=== PATIENT | male | born 1965 | race Caucasian/White ===

== ENCOUNTER 2022-06-20 21:52 | Emergency (ER) | payer OTHER ==
[2022-06-20] MEDS ORDERED: Ondansetron PF 4 MG/2 ML Vial ONE ×2 (22:51→23:05)
[2022-06-20] MEDS ORDERED: Morphine 4 MG/ML VIAL ONE ×2 (22:51→23:05)
[2022-06-20] MEDS ORDERED: Ketorolac Tromethamine 30 MG/ML VIAL ONE ×2 (22:51→23:05)
== END 2022-06-21 01:00 | disposition home or self-care (01) ==
LOC: ERS 21:52
DX: N45.1 Epididymitis (principal); F17.210 Nicotine dependence, cigarettes, uncomplicated
CPT/HCPCS: 76870; 93976; 96374; 96375; J1885; J2270; J2405

== ENCOUNTER 2022-06-23 00:31 | Inpatient (IN) | payer OTHER ==
[2022-06-23 01:45] LABS: #Basophils 0.1 thou/uL (0.0-0.2); #Eosinphils 0.4 thou/uL (0.0-0.7); #Lymphocytes 1.8 thou/uL (1.20-3.40); #Monocytes 1.4 thou/uL (0.11-0.59); #Neutrophils 13.1 thou/uL (1.40-6.50); %Basophils 0.4 % (0.0-1.0); %Eosinophils 2.3 % (0.0-10.0); %Monocytes 8.1 % (0.0-10.0); %Neutrophils 78.3 % (42.0-75.0); Hemoglobin 13.1 g/dL (14.0-18.0); Mean Corpuscular HGB CONC 34.2 g/dL (32.0-36.0); Mean Corpuscular Hemoglobin 31.2 pg (27.0-31.0); Mean Corpuscular Volume 91.1 fl (78.0-98.0); Mean Platelet Volume 7.2 fL (7.4-10.4); Platelet Count 275 10x3/uL (130-400); RBC Distribution Width 12.2 % (11.5-14.5); White Blood Cell (WBC) Count 16.8 10x3/uL (4.8-10.8)
[2022-06-23] MEDS ORDERED: Ondansetron PF 4 MG/2 ML Vial ONE (01:46)
[2022-06-23] MEDS ORDERED: Morphine 4 MG/ML VIAL ONE ×2 (01:46→03:10)
[2022-06-23] MEDS ORDERED: Piperacillin/Tazobactam 3.375 GM VIAL ONE (01:46)
[2022-06-23 01:59] LABS: INR-International Normal Ratio 1.3; Prothrombin Time 16.4 sec (12.0-14.7)
[2022-06-23 02:00] LABS: PTT 43.9 sec (22.9-36.1)
[2022-06-23 02:08] LABS: ALT (SGPT) 19 U/L (8-55); AST (SGOT) 13 U/L (5-34); Albumin 3.7 g/dL (3.5-5.0); Alkaline Phosphatase 76 U/L (40-110); Anion Gap 11 mmol/L (10-20); BUN (Urea Nitrogen) 22 mg/dL (8.4-25.7); Bilirubin, Total 0.2 mg/dL (0.2-1.2); Calc. Creatinine Clearance 0 mL/min (70-130); Calcium 9.6 mg/dL (7.8-10.44); Carbon Dioxide 26 mmol/L (22-29); Chloride 101 mmol/L (98-107); Estimated GFR 101; Glucose 237 mg/dL (70-105); Potassium 3.6 mmol/L (3.5-5.1); Protein, Total 7.7 g/dL (6.0-8.3); Sodium 134 mmol/L (136-145)
[2022-06-23] MEDS ORDERED: Vancomycin 1 GM/200 ML (FROZEN) BAG ONE (02:51)
[2022-06-23] MEDS ORDERED: Acetaminophen 325 MG TAB PO PRN (03:23)
[2022-06-23] MEDS ORDERED: Senokot S 8.6-50 MG TAB PO PRN (03:23)
[2022-06-23] MEDS ORDERED: Ondansetron PF 4 MG/2 ML Vial IVP PRN (03:23)
[2022-06-23] MEDS ORDERED: Ondansetron ODT 4 MG TAB PO PRN (03:23)
[2022-06-23] MEDS ORDERED: Ketorolac Tromethamine 30 MG/ML VIAL IVP PRN (03:25)
[2022-06-23 04:24] VITALS: BMI 37.4
[2022-06-23] MEDS: Piperacillin/Tazobactam 3.375 GM in Sodium Chloride 0.9% 100 ML IVPB SCH ×3 (04:58→21:04)
[2022-06-23 06:54] LABS: #Eosinphils 0.4 thou/uL (0.0-0.7); #Lymphocytes 1.7 thou/uL (1.20-3.40); #Monocytes 1.2 thou/uL (0.11-0.59); #Neutrophils 11.2 thou/uL (1.40-6.50); %Eosinophils 2.7 % (0.0-10.0); %Lymphocytes 11.6 % (21.0-51.0); %Monocytes 8.1 % (0.0-10.0); %Neutrophils 77.5 % (42.0-75.0); Hemoglobin 12.6 g/dL (14.0-18.0); Mean Corpuscular HGB CONC 33.8 g/dL (32.0-36.0); Mean Corpuscular Hemoglobin 30.8 pg (27.0-31.0); Mean Platelet Volume 7.2 fL (7.4-10.4); Platelet Count 267 10x3/uL (130-400); RBC Distribution Width 12.3 % (11.5-14.5); Red Blood Cell (RBC) Count 4.11 mill/uL (4.70-6.10); White Blood Cell (WBC) Count 14.4 10x3/uL (4.8-10.8)
[2022-06-23 07:16] LABS: Hemoglobin A1c 7.2 % (4.0-6.0)
[2022-06-23 07:19] LABS: Anion Gap 11 mmol/L (10-20); BUN (Urea Nitrogen) 19 mg/dL (8.4-25.7); Calc. Creatinine Clearance 183 mL/min (70-130); Carbon Dioxide 23 mmol/L (22-29); Chloride 104 mmol/L (98-107); Potassium 3.9 mmol/L (3.5-5.1); Sodium 134 mmol/L (136-145)
[2022-06-23 07:20] LABS: ALT (SGPT) 16 U/L (8-55); AST (SGOT) 11 U/L (5-34); Albumin 3.3 g/dL (3.5-5.0); Alkaline Phosphatase 68 U/L (40-110); Bilirubin, Total 0.2 mg/dL (0.2-1.2); Estimated GFR 103; Globulin 3.5 g/dL (2.4-3.5); Glucose 227 mg/dL (70-105); Protein, Total 6.8 g/dL (6.0-8.3)
[2022-06-23] MEDS ORDERED: Dextrose 5% in Water 1,000 ML IV PRN (08:12)
[2022-06-23] MEDS ORDERED: HumaLOG 300 UNITS/3 ML VIAL SC PRN (08:12)
[2022-06-23] MEDS ORDERED: Dextrose 50% Abboject 50 ML SYRINGE SLOW IVP PRN (08:12)
[2022-06-23] MEDS ORDERED: HYDROcodone/Acetaminophen 5/325 mg Tablet PO PRN (08:13)
[2022-06-23] MEDS: Famotidine 20 MG TAB PO SCH ×2 (08:34→21:15)
[2022-06-23] MEDS: Morphine 2 MG/ML VIAL SLOW IVP PRN ×3 (08:34→21:09)
[2022-06-23] MEDS ORDERED: Famotidine/PF 20 mg/2ml Vial SLOW IVP SCH (09:00)
[2022-06-23] MEDS: HYDROcodone/Acetaminophen 5/325 mg Tablet PO PRN (12:14)
[2022-06-23] MEDS ORDERED: VANCOMYCIN 1.75 GM/500 ML BAG 1.75 GM in Premix Bag 1 BAG IVPB SCH (15:00)
[2022-06-23 16:19] LABS: Anion Gap 12 mmol/L (10-20); BUN (Urea Nitrogen) 15 mg/dL (8.4-25.7); Calc. Creatinine Clearance 203 mL/min (70-130); Calcium 9.1 mg/dL (7.8-10.44); Carbon Dioxide 23 mmol/L (22-29); Chloride 103 mmol/L (98-107); Estimated GFR 106; Glucose 181 mg/dL (70-105); Potassium 4.2 mmol/L (3.5-5.1); Sodium 134 mmol/L (136-145)
[2022-06-23] MEDS: VANCOMYCIN 1.75 GM/500 ML BAG 1.75 GM in Premix Bag 1 BAG IVPB SCH (18:27)
[2022-06-23] MEDS ORDERED: VANCOMYCIN 750 MG/250 ML BAG 750 MG in Sodium Chloride 0.9% 250 ML 250 ML IVPB SCH (21:00)
[2022-06-24] MEDS: VANCOMYCIN 1.75 GM/500 ML BAG 1.75 GM in Premix Bag 1 BAG IVPB SCH ×2 (05:34→17:52)
[2022-06-24] MEDS: Morphine 2 MG/ML VIAL SLOW IVP PRN (05:36)
[2022-06-24 07:04] LABS: #Eosinphils 0.4 thou/uL (0.0-0.7); #Lymphocytes 1.8 thou/uL (1.20-3.40); #Monocytes 1.2 thou/uL (0.11-0.59); %Basophils 0.2 % (0.0-1.0); %Eosinophils 3.3 % (0.0-10.0); %Lymphocytes 14.2 % (21.0-51.0); %Monocytes 9.3 % (0.0-10.0); %Neutrophils 72.9 % (42.0-75.0); Hemoglobin 12.8 g/dL (14.0-18.0); Mean Corpuscular HGB CONC 33.6 g/dL (32.0-36.0); Mean Corpuscular Hemoglobin 30.7 pg (27.0-31.0); Mean Corpuscular Volume 91.4 fl (78.0-98.0); Mean Platelet Volume 7.1 fL (7.4-10.4); Platelet Count 322 10x3/uL (130-400); RBC Distribution Width 12.4 % (11.5-14.5); Red Blood Cell (RBC) Count 4.17 mill/uL (4.70-6.10); White Blood Cell (WBC) Count 12.3 10x3/uL (4.8-10.8)
[2022-06-24] MEDS: Piperacillin/Tazobactam 3.375 GM in Sodium Chloride 0.9% 100 ML IVPB SCH ×3 (08:03→21:16)
[2022-06-24] MEDS: Famotidine 20 MG TAB PO SCH ×2 (08:03→21:19)
[2022-06-24] MEDS ORDERED: Ketorolac Tromethamine 30 MG/ML VIAL IVP SCH (12:45)
[2022-06-24] MEDS: HYDROcodone/Acetaminophen 5/325 mg Tablet PO PRN ×2 (16:17→21:21)
[2022-06-24 17:21] LABS: Vancomycin, Trough 8.9 ug/mL
[2022-06-24] MEDS: Ketorolac Tromethamine 30 MG/ML VIAL IVP SCH (17:54)
[2022-06-25] MEDS: Ketorolac Tromethamine 30 MG/ML VIAL IVP SCH ×5 (00:48→23:00)
[2022-06-25] MEDS: VANCOMYCIN 1.75 GM/500 ML BAG 1.75 GM in Premix Bag 1 BAG IVPB SCH ×2 (05:03→18:31)
[2022-06-25] MEDS: HYDROcodone/Acetaminophen 5/325 mg Tablet PO PRN ×2 (05:59→14:01)
[2022-06-25] MEDS: Piperacillin/Tazobactam 3.375 GM in Sodium Chloride 0.9% 100 ML IVPB SCH ×3 (07:08→23:01)
[2022-06-25] MEDS: Famotidine 20 MG TAB PO SCH ×2 (08:05→20:19)
[2022-06-25] MEDS: Morphine 2 MG/ML VIAL SLOW IVP PRN ×2 (08:06→19:30)
[2022-06-26 05:38] LABS: #Eosinphils 0.2 thou/uL (0.0-0.7); #Lymphocytes 1.5 thou/uL (1.20-3.40); #Monocytes 0.7 thou/uL (0.11-0.59); #Neutrophils 7.4 thou/uL (1.40-6.50); %Basophils 0.2 % (0.0-1.0); %Eosinophils 2.4 % (0.0-10.0); %Lymphocytes 14.9 % (21.0-51.0); %Monocytes 7.5 % (0.0-10.0); %Neutrophils 75.1 % (42.0-75.0); Mean Corpuscular HGB CONC 32.8 g/dL (32.0-36.0); Mean Corpuscular Hemoglobin 29.9 pg (27.0-31.0); Mean Platelet Volume 6.8 fL (7.4-10.4); Platelet Count 317 10x3/uL (130-400); RBC Distribution Width 12.3 % (11.5-14.5); Red Blood Cell (RBC) Count 4.33 mill/uL (4.70-6.10); White Blood Cell (WBC) Count 9.9 10x3/uL (4.8-10.8)
[2022-06-26 05:57] LABS: Vancomycin, Trough 12.1 ug/mL
[2022-06-26 05:58] LABS: Anion Gap 12 mmol/L (10-20); BUN (Urea Nitrogen) 16 mg/dL (8.4-25.7); CRP (Inflammatory) 5.41 mg/dL (= or < 0.5); Calc. Creatinine Clearance 183 mL/min (70-130); Calcium 9.1 mg/dL (7.8-10.44); Carbon Dioxide 24 mmol/L (22-29); Chloride 104 mmol/L (98-107); Estimated GFR 103; Glucose 240 mg/dL (70-105); Potassium 4.4 mmol/L (3.5-5.1); Sodium 136 mmol/L (136-145)
[2022-06-26] MEDS: VANCOMYCIN 1.75 GM/500 ML BAG 1.75 GM in Premix Bag 1 BAG IVPB SCH ×2 (06:09→18:40)
[2022-06-26] MEDS: Ketorolac Tromethamine 30 MG/ML VIAL IVP SCH ×4 (06:09→23:57)
[2022-06-26] MEDS: Piperacillin/Tazobactam 3.375 GM in Sodium Chloride 0.9% 100 ML IVPB SCH ×3 (09:52→23:56)
[2022-06-26] MEDS: HYDROcodone/Acetaminophen 5/325 mg Tablet PO PRN ×3 (09:53→19:39)
[2022-06-26] MEDS: Famotidine 20 MG TAB PO SCH ×2 (09:54→21:34)
[2022-06-26] MEDS ORDERED: Losartan 25 MG TAB PO SCH (11:15)
[2022-06-26] MEDS ORDERED: Furosemide 40 MG/4 ML VIAL SLOW IVP SCH (15:30)
[2022-06-26] MEDS: glipiZIDE 5 MG TAB PO SCH (15:43)
[2022-06-26] MEDS: Morphine 2 MG/ML VIAL SLOW IVP PRN (18:33)
[2022-06-26] MEDS: Losartan 25 MG TAB PO SCH (21:33)
[2022-06-27] MEDS: HYDROcodone/Acetaminophen 5/325 mg Tablet PO PRN (03:43)
[2022-06-27] MEDS: Ketorolac Tromethamine 30 MG/ML VIAL IVP SCH ×4 (07:13→23:09)
[2022-06-27] MEDS: VANCOMYCIN 1.75 GM/500 ML BAG 1.75 GM in Premix Bag 1 BAG IVPB SCH (07:14)
[2022-06-27] MEDS: Losartan 25 MG TAB PO SCH ×2 (08:24→20:56)
[2022-06-27] MEDS: glipiZIDE 5 MG TAB PO SCH ×2 (08:24→16:47)
[2022-06-27] MEDS: Famotidine 20 MG TAB PO SCH ×2 (08:24→20:56)
[2022-06-27] MEDS: Piperacillin/Tazobactam 3.375 GM in Sodium Chloride 0.9% 100 ML IVPB SCH ×2 (09:53→16:47)
[2022-06-27] MEDS ORDERED: Furosemide 40 MG/4 ML VIAL SLOW IVP SCH (10:00)
[2022-06-27] MEDS: Vancomycin 1 GM in Premix Bag 1 BAG IVPB SCH ×2 (13:41→23:07)
[2022-06-27] MEDS: Morphine 2 MG/ML VIAL SLOW IVP PRN (18:27)
[2022-06-28] MEDS: Piperacillin/Tazobactam 3.375 GM in Sodium Chloride 0.9% 100 ML IVPB SCH ×4 (00:26→23:55)
[2022-06-28 04:50] LABS: #Eosinphils 0.3 thou/uL (0.0-0.7); #Lymphocytes 1.9 thou/uL (1.20-3.40); #Monocytes 0.9 thou/uL (0.11-0.59); #Neutrophils 8.3 thou/uL (1.40-6.50); %Basophils 0.1 % (0.0-1.0); %Eosinophils 2.4 % (0.0-10.0); %Lymphocytes 16.7 % (21.0-51.0); %Monocytes 7.7 % (0.0-10.0); Hemoglobin 13.9 g/dL (14.0-18.0); Mean Corpuscular HGB CONC 31.5 g/dL (32.0-36.0); Mean Corpuscular Hemoglobin 28.6 pg (27.0-31.0); Mean Corpuscular Volume 90.6 fl (78.0-98.0); Mean Platelet Volume 6.2 fL (7.4-10.4); Platelet Count 420 10x3/uL (130-400); RBC Distribution Width 12.5 % (11.5-14.5); Red Blood Cell (RBC) Count 4.88 mill/uL (4.70-6.10); White Blood Cell (WBC) Count 11.4 10x3/uL (4.8-10.8)
[2022-06-28 05:04] LABS: Anion Gap 14 mmol/L (10-20); BUN (Urea Nitrogen) 17 mg/dL (8.4-25.7); Calc. Creatinine Clearance 183 mL/min (70-130); Calcium 9.3 mg/dL (7.8-10.44); Carbon Dioxide 27 mmol/L (22-29); Chloride 102 mmol/L (98-107); Estimated GFR 103; Glucose 119 mg/dL (70-105); Potassium 4.3 mmol/L (3.5-5.1); Sodium 139 mmol/L (136-145)
[2022-06-28 05:16] LABS: Vancomycin, Trough 18.1 ug/mL
[2022-06-28] MEDS: Vancomycin 1 GM in Premix Bag 1 BAG IVPB SCH ×3 (06:27→21:44)
[2022-06-28] MEDS: Ketorolac Tromethamine 30 MG/ML VIAL IVP SCH (06:27)
[2022-06-28] MEDS: Losartan 25 MG TAB PO SCH ×2 (08:23→21:44)
[2022-06-28] MEDS: glipiZIDE 5 MG TAB PO SCH ×2 (08:23→17:16)
[2022-06-28] MEDS: Famotidine 20 MG TAB PO SCH ×2 (08:23→21:44)
[2022-06-28] MEDS ORDERED: Furosemide 40 MG/4 ML VIAL SLOW IVP SCH (09:30)
[2022-06-29 00:47] VITALS: TEMP 98.2
[2022-06-29 06:57] LABS: Vancomycin, Trough 16.7 ug/mL
[2022-06-29 08:03] VITALS: BP 117/71
[2022-06-29] MEDS: Vancomycin 1 GM in Premix Bag 1 BAG IVPB SCH (08:21)
[2022-06-29] MEDS: glipiZIDE 5 MG TAB PO SCH (08:24)
[2022-06-29] MEDS: Famotidine 20 MG TAB PO SCH (08:24)
[2022-06-29] MEDS: Losartan 25 MG TAB PO SCH (08:24)
[2022-06-29] MEDS: Piperacillin/Tazobactam 3.375 GM in Sodium Chloride 0.9% 100 ML IVPB SCH (09:35)
== END 2022-06-29 15:00 | disposition home or self-care (01) | DRG 728 ==
LOC: ERS 00:31 → T4-B 02:58 → OBSVTOIN 14:27
PROVIDERS: ADMIT Student in an Organized Health Care Education/Training Program; ATTEND Hospitalist
DX: N45.1 Epididymitis (principal); E11.65 Type 2 diabetes mellitus with hyperglycemia; F17.210 Nicotine dependence, cigarettes, uncomplicated; E66.01 Morbid (severe) obesity due to excess calories; Z68.37 Body mass index [BMI] 37.0-37.9, adult
CPT/HCPCS: 36415; 36416; 72193; 76870; 80048; 80053; 80202; 82565; 83036; 83605; 83880; 85025; 85610; 85730; 86140; 87040; 93005; 93306; 93976; 96365; 96374; 96375; 96376; G0378; J1650; J1885; J1940; J2270; J2272; J2405; J2543; J3370; J3370-JW; J3490